=== PATIENT | female | born 1990 | race Caucasian/White ===

== ENCOUNTER 2016-06-11 16:19 | Emergency (ER) | payer MEDICAID ==
[~2016-06-11] VITALS: Ht 162.6 cm; Wt 99.7 kg
[~2016-06-11 16:19] MED LIST: QUET1TAB67 PO; SUPETAB30 PO
[2016-06-11 16:23] VITALS: BP 130/87; PULSE 94; RESP 16; TEMP 98.7; O2SAT 97
[2016-06-11] MEDS ORDERED: SODIUM CHLOR 0.9% 1000 ML INJ 1,000 ML IV SCH (17:19)
--- NOTE | 2016-06-11 17:23 | PD ---
HPI Chief Complaint: General Weakness Time Seen by Provider: 17:16 Travel History International Travel<30 days: No Contact w/Intl Traveler<30days: No Traveled to known affect area: No History of Present Illness HPI 26-year-old female with history of migraine headaches, iron deficiency anemia, here for evaluation of generalized weakness and headache. The patient reports that she started feeling weakness this afternoon while walking outside. Headache started about 30 minutes ago, is frontal, 7 out of 10, pressure-like, slightly worse than her usual migraines. No fevers, chills, cough, or recent illness. PFSH Past Medical History Bipolar Disorder: Yes ?: Not LMP: 1 WEEK AGO Social History Alcohol Use: No Tobacco Use: No Substance Use: No Allergies-Medications (Allergen,Severity, Reaction): Coded Allergies: Topamax (Verified Allergy, Intermediate, HIVES/VOMITING/JITTERS, 06/11/16) Tramadol (Verified Allergy, Intermediate, HIVES/VOMITING, 06/11/16) Wellbutrin (Verified Allergy, Intermediate, HIVES, 06/11/16) Zoloft (Verified Allergy, Intermediate, VOMITING, 06/11/16) Reported Meds & Prescriptions Reported Meds & Active Scripts Active Reported Iron (Ferrous Sulfate) 325 Mg Tab 325 Mg PO DAILY Take Prilosec (Omeprazole) 20 Mg Cap 20 Mg PO BID Zantac 75 (Ranitidine HCl) 75 Mg Tab 75 Mg PO DAILY Take 30 to 60 minutes before eating food or drinking beverages that cause heartburn. Prozac (Fluoxetine HCl) 10 Mg Cap 10 Mg PO HS Maxalt (Rizatriptan Benzoate) 5 Mg Tab Review of Systems Except as stated in HPI: all other systems reviewed are Neg Physical Exam Narrative GENERAL: Well-developed, well-nourished, comfortable, no acute distress. SKIN: Warm and dry. No rash. No pallor. HEAD: Atraumatic. Normocephalic. EYES: Pupils equal and round. No scleral icterus. No injection or drainage. ENT: Mucous membranes pink and moist. NECK: Trachea midline. No JVD. No nuchal rigidity. CARDIOVASCULAR: Regular rate and rhythm. RESPIRATORY: No accessory muscle use. Clear to auscultation. Breath sounds equal bilaterally. GASTROINTESTINAL: Abdomen soft, non-tender, nondistended. MUSCULOSKELETAL: No obvious deformities. No clubbing. No cyanosis. No edema. NEUROLOGICAL: Awake and alert. No obvious cranial nerve deficits. Motor grossly within normal limits. Normal speech. No focal deficit. PSYCHIATRIC: Appropriate mood and affect; insight and judgment normal. Data Data Last Documented VS Vital Signs Date Time Temp Pulse Resp B/P Pulse Ox O2 Delivery O2 Flow Rate FiO2 06/11/16 17:50 84 16 114/74 99 Room Air 06/11/16 16:23 98.7 Orders Complete Blood Count With Diff (06/11/16 17:19) Comprehensive Metabolic Panel (06/11/16 17:19) Urinalysis - C+S If Indicated (06/11/16 17:19) Iv Access Insert/Monitor (06/11/16 17:19) Ecg Monitoring (06/11/16 17:19) Oximetry (06/11/16 17:19) Sodium Chlor 0.9% 1000 Ml Inj (Ns 1000 M (06/11/16 17:19) Sodium Chloride 0.9% Flush (Ns Flush) (06/11/16 17:30) Electrocardiogram (06/11/16 17:19) Ed Urine Pregnancytest Poc (06/11/16 17:19) Metoclopramide Inj (Reglan Inj) (06/11/16 17:30) Ketorolac Inj (Toradol Inj) (06/11/16 17:30) Influenzae A/B Antigen (06/11/16 17:19) Labs Laboratory Tests Test 06/11/16 06/11/16 17:35 17:45 Urine Collection Type CLEAN CATCH Urine Color YELLOW Urine Turbidity CLEAR Urine pH 5.5 Urine Specific [place] 1.027 Urine Protein NEG mg/dL Urine Glucose (UA) NEG mg/dL Urine Ketones NEG mg/dL Urine Occult Blood NEG Urine Nitrite NEG Urine Bilirubin NEG Urine Leukocyte Esterase NEG Urine WBC 0-2 /hpf Urine Squamous Epithelial 0-5 /hpf Cells Microscopic Urinalysis Comment CULT NOT INDICATED Urine Collection Time 1735 White Blood Count 7.4 TH/MM3 Red Blood Count 4.86 MIL/MM3 Hemoglobin 13.3 GM/DL Hematocrit 40.7 % Mean Corpuscular Volume 83.7 FL Mean Corpuscular Hemoglobin 27.3 PG Mean Corpuscular Hemoglobin 32.6 % Concent Red Cell Distribution Width 12.8 % Platelet Count 289 TH/MM3 Mean Platelet Volume 8.3 FL Neutrophils (%) (Auto) 63.8 % Lymphocytes (%) (Auto) 29.4 % Monocytes (%) (Auto) 4.5 % Eosinophils (%) (Auto) 1.2 % Basophils (%) (Auto) 1.1 % Neutrophils # (Auto) 4.7 TH/MM3 Lymphocytes # (Auto) 2.2 TH/MM3 Monocytes # (Auto) 0.3 TH/MM3 Eosinophils # (Auto) 0.1 TH/MM3 Basophils # (Auto) 0.1 TH/MM3 CBC Comment DIFF FINAL Differential Comment Sodium Level 141 MEQ/L Potassium Level 4.0 MEQ/L Chloride Level 106 MEQ/L Carbon Dioxide Level 28.4 MEQ/L Anion Gap 7 MEQ/L Blood Urea Nitrogen 16 MG/DL Creatinine 0.82 MG/DL Estimat Glomerular Filtration 84 ML/MIN Rate Random Glucose 87 MG/DL Calcium Level 9.1 MG/DL Total Bilirubin 0.4 MG/DL Aspartate Amino Transf 17 U/L (AST/SGOT) Alanine Aminotransferase 21 U/L (ALT/SGPT) Alkaline Phosphatase 87 U/L Total Protein 7.8 GM/DL Albumin 3.8 GM/DL [facility] Medical Decision Making Medical Screen Exam Complete: Yes Emergency Medical Condition: Yes Medical Record Reviewed: Yes Interpretation(s) EKG: Sinus, rate 75, normal axis, normal intervals, no acute ischemic abnormality. Differential Diagnosis Migraine headache, anemia, dehydration, influenza, viral illness, meningitis/ encephalitis/SAH unlikely Narrative Course Vital signs reviewed. CBC is unremarkable. CMP is unremarkable. UA is not suggestive of UTI. Urine is negative. Influenza is negative. The patient was given a liter of IV fluids, IV Reglan, and IV Toradol and is feeling significantly improved. She is stable for discharge home out patient follow-up with her primary care physician this week. She was informed on when to return to the emergency department. She verbalizes understanding and agreement with plan. Diagnosis Primary Impression: Headache Qualified Code: R51 - Nonintractable headache, unspecified chronicity pattern , unspecified headache type Additional Impression: Generalized weakness Referrals: Primary Care Physician 3 days Additional Instructions: Follow-up with your primary care physician this week. Return to the emergency department for worsening symptoms or any other concerns. Disposition: 01 DISCHARGE HOME Condition: Stable Tray De La Fuente MD Jun 11, 2016 17:23
[2016-06-11] MEDS ORDERED: METOCLOPRAMIDE HCL 10 MG/2 ML VIAL IV PUSH ONE (17:30)
[2016-06-11] MEDS ORDERED: FERR1TAB36 PO (17:30)
[2016-06-11] MEDS ORDERED: KETOROLAC TROMETHAMINE 30 MG/ML (IVP) VIAL IV PUSH ONE (17:30)
[2016-06-11] MEDS ORDERED: MAXA5TAB2 (17:30)
[2016-06-11] MEDS ORDERED: SODIUM CHLORIDE 0.9% FLUSH 5 ML FLUSH IVF PRN (17:30)
[2016-06-11] MEDS ORDERED: FLUO-1 PO (17:30)
[2016-06-11] MEDS ORDERED: ZANTTAB9 PO (17:30)
[2016-06-11] MEDS ORDERED: PRIL20CA9 PO (17:30)
[2016-06-11 17:50] VITALS: BP 114/74; PULSE 80; PULSE 84; RESP 16; O2SAT 99
[2016-06-11 18:07] LABS: AUTOMATED NEUTROPHIL # 4.7 TH/MM3 (1.8-7.7); BASOPHIL # 0.1 TH/MM3 (0-0.2); BASOPHIL % 1.1 % (0.0-2.0); EOSINOPHIL # 0.1 TH/MM3 (0-0.4); EOSINOPHIL % 1.2 % (0.0-4.0); HEMATOCRIT 40.7 % (35.0-46.0); HEMO FLAGS DIFF FINAL; LYMPH % 29.4 % (9.0-44.0); LYMPHOCYTE # 2.2 TH/MM3 (1.0-4.8); MEAN CELL VOLUME 83.7 FL (80.0-100.0); MEAN CORPUSCULAR HEMOGLOBIN 27.3 PG (27.0-34.0); MEAN CORPUSCULAR HGB CONC 32.6 % (32.0-36.0); MONO % 4.5 % (0.0-8.0); NEUT % 63.8 % (16.0-70.0); PLATELET COUNT 289 TH/MM3 (150-450); RED BLOOD COUNT 4.86 MIL/MM3 (4.00-5.30); RED CELL DISTRIBUTION WIDTH 12.8 % (11.6-17.2); WHITE BLOOD COUNT 7.4 TH/MM3 (4.0-11.0)
[2016-06-11 18:11] LABS: BLOOD, URINE NEG (NEG); GLUCOSE,URINE NEG (NEG); KETONE, URINE NEG (NEG); NITRITE,URINE NEG (NEG); PH, URINE 5.5 (5.0-8.5)
[2016-06-11 18:13] LABS: CHLORIDE 106 MEQ/L (98-107); SODIUM (NA) 141 MEQ/L (136-145)
[2016-06-11 18:17] LABS: ANION GAP 7 MEQ/L (5-15); BICARBONATE 28.4 MEQ/L (21.0-32.0)
[2016-06-11 18:18] LABS: BLOOD UREA NITROGEN 16 MG/DL (7-18)
[2016-06-11 18:20] LABS: ALT (GPT) 21 U/L (10-53); AST (GOT) 17 U/L (15-37)
[2016-06-11 18:21] LABS: GLOMERULAR FILTRATION RATE 84 ML/MIN (>89)
[2016-06-11 18:22] LABS: TOTAL BILIRUBIN ADULT 0.4 MG/DL (0.2-1.0)
[2016-06-11 18:23] LABS: ALKALINE PHOSPHATASE 87 U/L (45-117)
[2016-06-11 18:34] LABS: COMMENT (UR) CULT NOT INDICATED; CULTURE IF INDICATED CULT NOT INDICATED; METHOD OF COLLECTION CLEAN CATCH; SQUAMOUS EPITHELIAL CELL URINE 0-5 /hpf (0-5); URINE COLOR YELLOW (YELLW/STRAW); WBC, URINE 0-2 /hpf (0-5)
[2016-06-11 18:55] VITALS: BP 103/65; PULSE 77; RESP 18; TEMP 97.4; O2SAT 99
--- NOTE | 2016-06-12 05:02 | EKG ---
Date Performed: 06/11/2016 Time Performed: 17:33:06 PTAGE: 26 years EKG: Sinus rhythm Normal ECG COMPARED TO PRIOR ELECTROCARDIOGRAM, Rate has decreased. PREVIOUS TRACING : 04/04/2008 00.23 DOCTOR: Jaziel Paul Interpretating Date/Time 06/12/2016 05:00:29
== END 2016-06-11 19:51 | disposition home or self-care (01) ==
LOC: PHED 16:19
DX: R51 Headache (principal); F31.9 Bipolar disorder, unspecified
CPT/HCPCS: 80053; 81001; 84703; 85025; 87804; 93005; 96361; 96374; 96375; 99285; J1885; J2765; J7030